=== PATIENT | female | born 1990 | race Caucasian/White ===

== ENCOUNTER 2018-08-27 07:11 | Emergency (ER) | payer OTHER ==
[~2018-08-27] VITALS: Ht 165.1 cm; Wt 62.6 kg
[~2018-08-27 07:11] MED LIST: ACYCLOVIR 400400 MG PO; AZO URINARY P97.5 MG PO; BACTRIM DS TAB1 EAC1 PO; FLAGYL500 MG PO; IBUPROFEN 600600 M1 PO; IBUPROFEN200 M2 PO; NOHOMEMEDICATIONS; NORCO 5-325 TA1 EACH PO; ONDANSETRON HCL4 M2 PO; PERCOCET 5-3251 EACH PO; PERCOCET PO; PREDNISONE 10 M10 M1 PO; TORADOL 10 MG T10 MG PO; VICODIN 5-5001 EACH PO; VISTARIL 25 MG25 M1 PO; XANAX 0.5 MG0.5 MG PO; XANAX 1 MG TABLE1 MG PO; ZOFRAN4 MG PO
[2018-08-27] MEDS ORDERED: ALEVE220 MG PO (07:17)
[2018-08-27] MEDS ORDERED: ALLEGRA ALLERG180 MG PO (07:17)
[2018-08-27 07:30] LABS: ABSOLUTE BASOPHILS 0.1 thou/uL (0.0-0.2); ABSOLUTE EOSINOPHILS 0.2 thou/uL (0.0-0.7); ABSOLUTE LYMPHOCYTES 2.2 thou/uL (0.8-5.3); ABSOLUTE MONOCYTES 0.7 thou/uL (0.0-1.2); ABSOLUTE NEUTROPHILS 3.4 thou/uL (1.6-8.1); EOSINOPHILS 3.3 %; HEMATOCRIT 43.1 % (37.0-47.0); HEMOGLOBIN 14.9 gm/dL (12.0-15.0); LYMPHOCYTES 33.9 %; MCH 31.8 pg (26.0-34.0); MCHC 34.6 g/dL (28.0-37.0); MCV 92.1 fL (80.0-100.0); MPV 8.9 fl. (7.2-11.1); NUCLEATED RBCS 0 /100WBC; PLATELET COUNT* 271 thou/uL (150-400); POLYS 51.8 %; RBC 4.68 mil/uL (4.20-5.00); RDW-CV 12.6 % (10.5-14.5); WBC 6.6 thou/uL (4.0-11.0)
[2018-08-27 07:57] LABS: ALBUMIN 4.1 g/dL (3.4-5.0); ALKALINE PHOSPHATASE 48 U/L (46-116); ANION GAP 10 mmol/L (7-16); BUN 17 mg/dL (7-18); CALCIUM 8.7 mg/dL (8.5-10.1); CHLORIDE 105 mmol/L (98-107); CO2 27 mmol/L (21-32); CREATININE 0.7 mg/dL (0.6-1.3); GLUCOSE 92 mg/dL (70-99); MAGNESIUM 1.7 mg/dL (1.8-2.4); NT-PRO BRAIN NAT PEPTIDE 38 pg/mL (<300); POTASSIUM 4.2 mmol/L (3.5-5.1); SGOT 16 U/L (15-37); SGPT 25 U/L (30-65); SODIUM 142 mmol/L (136-145); TOTAL BILIRUBIN 0.3 mg/dL (<0.1-1.0); TOTAL PROTEIN 7.6 g/dL (6.4-8.2); TROPONIN-I LEVEL <0.06 ng/mL (<0.06)
[2018-08-27 08:24] VITALS: BP 107/66
--- NOTE | 2018-08-27 12:48 | EKG ---
[place] [address] ELECTROCARDIOGRAM REPORT Name: AMMY REYNOLDS [id number] Admission: 08/27/18 Attend Phys: Discharge: 08/27/18 Date of : 88 Report #: [id number] THIS REPORT FOR: //name// [facility] ED Test Date: 2018-08-27 Test Time: 07:14:43 Pat Name: AMMY REYNOLDS Department: Room: Gender: F Director Patient Financial Services: : 1990 Requested By: Cooper Ma Order Number: [id number] MD: Kirby Lin Measurements Intervals [place] Rate: 99 P: 64 NC: 142 QRS: 60 QRSD: 81 T: 38 QT: 331 QTc: 425 Interpretive Statements Sinus rhythm Baseline wander in lead(s) V2 Compared to ECG 09/20/2016 00:04:49 No significant changes Electronically Signed On 08-27-2018 12:48:17 CDT by Kirby Lin [email or web address] <ELECTRONICALLY SIGNED> By: Kirby Lin MD, [facility] 08/27/18 1248 0714 3 Kirby Lin MD, FACC /EPI
== END 2018-08-27 08:25 | disposition home or self-care (01) ==
LOC: M.ERS 07:11
PROVIDERS: Emergency Medicine
DX: R00.2 Palpitations (principal); J45.909 Unspecified asthma, uncomplicated; F32.9 Major depressive disorder, single episode, unspecified; Z87.891 Personal history of nicotine dependence